=== PATIENT | male | born 1940 | race Caucasian/White ===

== ENCOUNTER 2022-09-10 11:07 | Emergency (ER) | payer OTHER ==
[~2022-09-10] VITALS: Ht 165.1 cm; Wt 74.8 kg
[2022-09-10] MEDS ORDERED: ATORVASTATIN CA10 MG PO (11:33)
[2022-09-10] MEDS ORDERED: LANTUS SOL100 UNIT/1 SQ (11:33)
[2022-09-10] MEDS ORDERED: TRULICITY0.75 MG/0. SQ (11:34)
[2022-09-10] MEDS ORDERED: HUMALOG100 UNIT/2 SQ (11:34)
[2022-09-10] MEDS ORDERED: PENTOXIFYLLINE400 MG PO (11:34)
[2022-09-10] MEDS ORDERED: GLUMETZA500 MG PO (11:34)
== END 2022-09-10 13:03 | disposition home or self-care (01) ==
LOC: ER 11:07
DX: S80.812A Abrasion, left lower leg, initial encounter (principal); S90.412A Abrasion, left great toe, initial encounter; W22.8XXA Striking against or struck by other objects, initial encounter; Y93.89 Activity, other specified; Y92.814 Boat as the place of occurrence of the external cause; Z88.2 Allergy status to sulfonamides; E11.9 Type 2 diabetes mellitus without complications; Z79.4 Long term (current) use of insulin